=== PATIENT | male | born 1995 | race Caucasian/White ===

== ENCOUNTER 2019-04-24 23:38 | Emergency (ER) | payer BC, OTHER, SELFPAY ==
[2019-04-24 23:40] VITALS: BP 125/79; PULSE 129; RESP 18; TEMP 36.7; O2SAT 99; BMI 21.2
--- NOTE | 2019-04-25 00:01 | ED.DCSUM_ITS ---
History of Present Illness Chief Complaint: Nausea/Vomiting Informant: Patient Narrative: With epigastric abdominal pain nausea vomiting. He stated it started around 5 PM. He has had 7 episodes of emesis nonbloody. He is never had this before. He denies alcohol use. No history of pancreatitis or gallbladder disease. He denies any chronic medical problems. Current severity is mild to moderate. Past Medical History - Allergies and Home Meds Allergies/Adverse Reactions: Allergies omeprazole [From Prilosec] Adverse Reaction (Verified 04/24/19 23:43) Vomiting Primary Care Physician: Taqueria Wong MD [Primary Care Provider] - Prior records reviewed: Yes Past Medical History: None Surgical History: - - Right arm Lives: With Family Smoking Status: Never smoker Alcohol: None Drugs: None Review of Systems General: Denies: Chills, Fever, Sweats Eyes: Denies: Visual changes - bilaterally, Diplopia ENT: Denies: Rhinorrhea, Sore throat Cardiovascular: Denies: Chest pain, Palpitations Respiratory: Denies: Dyspnea, Cough, Dyspnea on exertion Gastrointestinal: Reports: Abdominal pain, Nausea, Vomiting. Denies: Diarrhea, Melena, Hematochezia Genitourinary: Denies: Dysuria, Hematuria, Frequency Musculoskeletal: Denies: Back pain, Extremity Pain Skin: Denies: Rash, Wounds Neurological: Denies: Headache, Weakness, Numbness Physical Exam Vital Signs/Narrative: Vital Signs Temp Pulse Resp BP Pulse Ox 04/24/19 23:40 98.1 F 129 H 18 125/79 H 99 General: Well nourished, Well developed, No Acute Distress Head: Normocephalic, Atraumatic Eyes: Perrl, EOMI ENT: Moist mucous membranes, No rhinorrhea Neck: Supple, Nontender Cardiovascular: Regular rate, Regular rhythm, No murmurs Respiratory: No distress, CTA bilaterally, Chest nontender Abdomen: Soft, Nondistended, Normal bowel sounds, Tender - Tender epigastric without guarding or rebound. Negative for: Nontender, Guarding, Rebound tenderness Back: Nontender, Normal Inspection Extremities: Nontender, No edema Skin: Normal color, No rash Neurological: Alert, Oriented x3, Cranial nerves II-XII grossly intact, Normal Strength, Normal Sensation Psychological: Normal affect, Normal Mood Diagnostic/Tx/Re-eval Laboratory Results 04/24/19 04/24/19 23:50 23:50 WBC 12.2 H RBC 5.51 Hgb 17.4 H Hct 49.5 MCV 89.8 MCH 31.6 MCHC 35.2 RDW Std Deviation 40.1 RDW Coeff of Safia 12.2 Plt Count 308 MPV 9.0 Immature Gran % (Auto) 0.500 Neut % (Auto) 90.5 H Lymph % (Auto) 2.7 L [place] % (Auto) 5.1 Eos % (Auto) 0.7 Baso % (Auto) 0.5 Absolute Neuts (auto) 11.1 H Absolute Lymphs (auto) 0.33 L Nucleated RBC % 0 Sodium 139 Potassium 4.1 Chloride 108 H Carbon Dioxide 21.0 Anion Gap 10 BUN 21 H Creatinine 0.83 Estim Creat Clear Calc 149.68 Est GFR (MDRD) Af Amer 146 Est GFR (MDRD) Non-Af 121 BUN/Creatinine Ratio 25.3 H Glucose 115 H Calcium 9.0 Total Bilirubin 1.10 H AST 22 ALT 39 Alkaline Phosphatase 75 Total Protein 7.4 Albumin 4.2 Globulin 3.2 Albumin/Globulin Ratio 1.3 Lipase 179 - Medical Decision Making Given IV fluids Zofran Toradol. Lab work obtained. Lab work shows a white count 12.2. Elevated hemoglobin is most likely secondary to dehydration. BUN 21. Rest of his labs including liver function test and lipase negative. At this time patient felt much better after IV fluid bolus and treatment. His abdomen is benign. I think he likely has a viral illness versus food poisoning. No diarrhea however. Feels he needs a CT of his abdomen. I do not think he has appendicitis or gallbladder disease or colitis. He is resting comfortably. Will be discharged with Zofran. Will use Pepto-Bismol and follow-up as an outpatient. He will return if he worsens ED Disposition - Plan for ED Patient: Disposition: Home or Assisted Living Diagnosis: Vomiting Instructions: VOMITING (5y-Adult) Prescriptions: Ondansetron [Zofran Odt] 4 mg PO Q8H PRN PRN #10 tab PRN Reason: Nausea Prescription Printed Referrals: Taqueria Wong MD [Primary Care Provider] -
[2019-04-25 00:08] LABS: Absolute Lymphocyte Count 0.33 X10^3/uL (0.83-4.51); Absolute Neutrophil Count 11.1 X10^3/uL (2.0-7.7); Basophil# 0.06 X10^3/uL; Basophil% 0.5 % (0-1); Eosinophil# 0.08 X10^3/uL; Eosinophils% 0.7 % (0-5); Hematocrit 49.5 % (40-54); Hemoglobin 17.4 g/dL (13.0-16.5); Lymphocyte # 0.33 X10^3/ul (4.0); Lymphocyte % 2.7 % (19-41); Mean Corp Hgb Conc 35.2 g/dL (32-36); Mean Corpuscular Hgb 31.6 pg (27.0-32.0); Mean Corpuscular Volume 89.8 fL (80-94); Monocyte# 0.63 X10^3/uL; Monocyte% 5.1 % (0-10); NRBC Flagged by Analyzer 0 % (0-5); Neutrophil # 11.08 X10^3/uL (2.7-7.7); Neutrophil % 90.5 % (47-70); POSITIVE DIFFERENTIAL YES; Platelet Count 308 K/mm3 (150-450); RBC Distribution Width CV 12.2 % (11.6-14.6); RBC Distribution Width SD 40.1 fl (35.1-43.9); Red Blood Count 5.51 M/mm3 (4.6-6.2); White Blood Count 12.2 K/mm3 (4.4-11.0)
[2019-04-25 00:14] LABS: Differential Indicated SCAN CRITERIA MET
[2019-04-25] MEDS: Ondansetron 4 MG/2 ML Vial IV (00:24)
[2019-04-25] MEDS: 0.9% Normal Saline 1,000 ML 1000 ML IV (00:24)
[2019-04-25] MEDS: Ketorolac 30 MG/ML Syringe IV (00:25)
[2019-04-25 00:37] LABS: ALB/GLOB Ratio 1.3 RATIO (0.9-2.4); AST(SGOT) 22 U/L (15-37); Alanine Aminotransfer ALT/SGPT 39 U/L (16-61); Albumin, Serum 4.2 g/dL (3.2-5.0); Alkaline Phosphatase 75 U/L (45-117); Anion Gap 10 (5-15); BUN 21 mg/dL (7-18); BUN/Creat Ratio 25.3 RATIO (10-20); Chloride 108 mmol/L (98-107); Creatinine, Serum 0.83 mg/dL (0.70-1.30); EST Glomerular Filtration Rate 121 mL/min (>60); Est Glom Filt Rate - Afr Amer 146 mL/min (>60); Estimated Creatinine Clearance 149.68 ml/min; Globulin 3.2 g/dL (2.2-4.2); Glucose 115 mg/dL (74-106); Lipase 179 U/L (73-393); Potassium 4.1 mmol/L (3.5-5.1); Protein, Total 7.4 g/dL (6.4-8.2); Sodium Level 139 mmol/L (136-145)
[2019-04-25 01:46] VITALS: BP 120/73; PULSE 108; RESP 18; O2SAT 99
== END 2019-04-25 01:52 | disposition home or self-care (01) ==
PROVIDERS: Emergency Provider Emergency Medicine; Family Provider Family Medicine; PCP Family Medicine
DX: R11.2 Nausea with vomiting, unspecified (principal); R10.13 Epigastric pain
CPT/HCPCS: 80053; 83690; 85025; 96361; 96374; 96375; 99283; J7030; A4216; J2405

== ENCOUNTER 2020-09-24 10:18 | Outpatient (RCR) | payer BC, SELFPAY | END 2020-11-17 23:59 | LOC: IMMUN 10:18 | PROVIDERS: PCP Family Medicine; Referring Provider Family Medicine; Visit Provider Family Medicine | DX: Z23 Encounter for immunization (principal) | CPT/HCPCS: 0001A; 0002A; 91300 ==